=== PATIENT | male | born 1945 | race Two or more races ===

== ENCOUNTER → 2020-10-20 | Outpatient (CLI) | payer MEDICARE ==
--- NOTE | 2020-10-20 16:05 | XR ---
EXAMINATION TYPE: XR chest 2V DATE OF EXAM: 10/20/2020 COMPARISON: NONE HISTORY: Pre-MRI clearance. TECHNIQUE: Frontal and lateral views of the chest are obtained. FINDINGS: Overlying sternal wires and mediastinal clips are seen. Background chronic emphysematous a nd pulmonary fibrotic changes. There is slight infrahilar linear scarring extending anteriorly. There is no suspicious focal air space opacity, pleural effusion, or pneumothorax seen. The cardiac silho uette size is within normal limits with atherosclerotic and ectatic thoracic aorta. No epicardial pac er wires noted to prevent MRI. The osseous structures are demineralized. Cholecystectomy clips noted on lateral view. IMPRESSION: As above.
== END | disposition home or self-care (01) ==
LOC: RADXRMAIN 15:40
PROVIDERS: ATTEND Orthopaedic Surgery Sports Medicine
DX: Z18.10 Retained metal fragments, unspecified (principal)
CPT/HCPCS: 71046

== ENCOUNTER 2020-11-13 07:15 | Day surgery (SDC) | payer MEDICARE ==
[2020-11-11 09:29] VITALS: BMI 19.5
[~2020-11-13 07:15] MED LIST: DEXAMETHASONE SOD PHOSPHATE 4 MG/ML 1 ML VIAL IV ONE; LACTATED RINGERS 1,000 ML IV SCH; LIDOCAINE 1% (10MG/ML) FOR IV START INTRADERMA PRN; ONDANSETRON 4 MG/2 ML VIAL IVP ONE; Pre Op ABX Message 1 EACH MISC MISCELLANE ONE
[2020-11-13] MEDS ORDERED: MIDAZOLAM 2 MG/2 ML VIAL IV ONE (08:14)
[2020-11-13] MEDS ORDERED: SUCCINYLCHOLINE CHLORIDE 100 MG/5 ML SYR IV ONE (09:17)
[2020-11-13] MEDS ORDERED: LIDOCAINE 1% INJ 10MG/ML (20 ML MDV) ONE (09:17)
[2020-11-13] MEDS ORDERED: DEXAMETHASONE SOD PHOSPHATE 4 MG/ML 1 ML VIAL ONE (09:17)
[2020-11-13] MEDS ORDERED: ePHEDrine SULFATE/0.9% NACL/PF 50 MG/5 ML SYRINGE IV ONE (09:17)
[2020-11-13] MEDS ORDERED: ROPIVACAINE 5 MG/ML 30 ML VIAL ONE (09:17)
[2020-11-13] MEDS ORDERED: GLYCOPYRROLATE 0.2 MG/ML 2 ML VIAL ONE (09:17)
[2020-11-13] MEDS ORDERED: fentaNYL (PF) 50 MCG/ML 2 ML AMP ONE (09:17)
[2020-11-13] MEDS ORDERED: PHENYLEPHRINE 10 MG/ML VIAL ONE (09:17)
[2020-11-13] MEDS ORDERED: ETOMIDATE 2 MG/ML 10 ML VIAL ONE (09:17)
[2020-11-13] MEDS ORDERED: LACTATED RINGERS 1,000 ML IV ONE (10:30)
[2020-11-13 11:05] VITALS: TEMP 97.6
[2020-11-13] MEDS ORDERED: ONDANSETRON 4 MG/2 ML VIAL IVP ONE (11:21)
[2020-11-13] MEDS: HYDROmorphone 0.5 MG/0.5 ML SYRINGE IVP PRN ×2 (11:38→11:50)
[2020-11-13] MEDS ORDERED: HYDROcodone/APAP 7.5-325MG 1 EACH TAB ONE (12:18)
[2020-11-13] MEDS ORDERED: HYDROcodone/APAP 7.5-325MG 1 EACH TAB PO ONE (12:22)
[2020-11-13 13:30] VITALS: BP 137/81; PULSE 76; RESP 17
--- NOTE | 2020-11-13 17:28 | OP ---
OPERATIVE REPORT DATE OF PROCEDURE: 11/13/2020 SURGEON: Skyler Koenig MD MENTAL HEALTH TECHNICIAN: Saud Clinton PA-C PREOPERATIVE DIAGNOSES: 1. Left shoulder full-thickness rotator cuff tear. 2. Left shoulder superior labral tear. 3. 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 4. Left shoulder subacromial impingement. POSTOPERATIVE DIAGNOSES: 1. Left shoulder full-thickness tear of the supraspinatus, 2 x 2 cm tear. 2. Left shoulder type 2 superior labral tear, tearing both anterior and posterior to the biceps anchor. 3. Left shoulder chronic tear, proximal long head of the biceps tendon. 4. Left shoulder type 2 to 3 anterolateral acromial spur. PROCEDURE PERFORMED: 1. Left shoulder arthroscopic rotator cuff repair, 2 x 2 cm tear of the supraspinatus. 2. Left shoulder arthroscopic acromioplasty. 3. Left shoulder arthroscopic anterior, superior and posterior labral debridement. ANESTHESIA: General endotracheal. ESTIMATED BLOOD LOSS: Minimal. TOURNIQUET: None. DRAINS: None. COMPLICATIONS: None apparent. DISPOSITION: Post-Anesthesia Care Unit. EXAMINATION UNDER ANESTHESIA: Left shoulder elevation 160 degrees. External rotation to the side was to 60. External rotation at 90 degrees. Abduction was 90 degrees. Internal rotation at 90 degrees. Abduction was 60 degrees. Sulcus less than 1 cm, anterior translation glenoid face, posterior translation glenoid face. ARTHROSCOPIC FINDINGS - LEFT SHOULDER: 1. Superior labrum. He has a chronic complete tear of the proximal long head of the biceps tendon. 2. He had a degenerative superior labral tear which was torn both anterior and posterior to the previous biceps anchor. 3. Anterior and inferior labrum fraying but a normal glenoid labral attachment. 4. Posterior labrum: Tearing of the posterior labrum from the 9 o'clock position and 12 o'clock position on the glenoid face. 5. Humeral head cartilage normal. 6. Rotator cuff full-thickness tear of the supraspinatus 2 x 2 cm tear with minimal retraction. 7. Glenoid face cartilage, mild grade 1 fraying. 8. Subacromial space - significant fraying of the undersurface of the coracoacromial ligament with a type 2 to 3 anterolateral acromial spur. INDICATIONS: Al is a 75-year-old male with left shoulder pain. He sustained an injury to the shoulder. He has noted weakness as well as significant pain in the shoulder. He has been through a fairly significant course of nonoperative treatment up to this point. Physical examination and MRI reveal tearing of the rotator cuff as well as a chronic long head of the biceps tendon rupture. At this point in time he feels that he has failed nonoperative treatment and would like to proceed with operative intervention. A long discussion was held with the patient with regard to treatment options. The risks of the procedure were all discussed with him in detail. These risks include but were not limited to risk of infection, nerve damage, bleeding, pain, and a small risk of deep vein thrombosis which could lead to fatal pulmonary embolism. Further risks include lack of healing of the rotator cuff . The patient understands the operation as well as the fact that there is no guarantee of improvement of his symptoms. Appropriate informed consent was obtained. DESCRIPTION OF THE PROCEDURE: The patient was identified in the preoperative holding area. Surgical site was marked by both the patient and myself. He was given 2 grams of Ancef IV for prophylactic purposes. He was then transported to the operative suite. He was placed supine on the operating room table. The patient was then intubated endotracheally and received general anesthesia throughout the operative procedure. Examination under anesthesia was then performed with findings noted as above. The patient was then placed into the beach chair position, well padded in preparation for surgery. Great care was taken to ensure that the cervical spine was in neutral alignment and well padded, and maintained that way throughout the operative procedure. Great care was also taken to ensure that his legs were appropriately padded as well. The patient's left upper extremity was then prepped and draped in the usual sterile fashion. A standard surgical pause was undertaken to ensure that appropriate preoperative antibiotics had been given and that we were operating on the correct site. All staff in the room were in agreement and we proceeded. The acromion as well as the AC joint and coracoid were marked with a surgical pen. The skin of the anticipated port sites was also marked with a surgical pen. The skin of the anticipated port sites was then injected with 0.25% Marcaine with epinephrine. I then proceeded to make the posterior portal. A 30-degree arthroscope was introduced into the glenohumeral joint through this portal. The arthroscopic pump pressure was set at 40 mmHg and maintained at that level throughout the entire case. Next, utilizing an 18-gauge spinal needle to topically localize the placement, the anterior superior portal was made. This was made just underneath the biceps tendon high on the rotator interval tear. A small 5.75 mm cannula was then placed. The outflow was then done through this cannula. Diagnostic arthroscopy of the shoulder was then performed. The findings are noted above. Great care was taken to probe superior labral complex as well as biceps anchor. He had a chronic tear of the proximal long head of the biceps tendon. There was no evidence of the tendon within the glenohumeral joint. The tear of the superior labrum extended both anterior and posterior to the biceps anchor. At this point I proceeded to debride the torn loose tissue of the superior labrum. This was debrided anteriorly, superiorly and posteriorly back to stable tissue. I then inspected the rotator cuff from intra-articular. He did have a full-thickness tear of the supraspinatus. This tear was debrided very gently from intra-articular utilizing a synovial shaver. At this point in time no further work was deemed necessary from intra-articular. The arthroscope was removed from the glenohumeral joint, and utilizing the same posterior skin incision, it was placed in the subacromial space. Next, utilizing an 18-gauge spinal needle to topically localize placement, a lateral port was made under direct visualization. Subacromial resection was then performed utilizing the synovial shaver as well as the ArthroCare wand. There was a significant amount of fraying of the undersurface of the coracoacromial ligament. This was then taken down utilizing the ArthroCare wand. This exposed an underlying type 2-3 anterolateral acromial spur. I then proceeded with acromioplasty. Utilizing the synovial shaver in a juanis-type fashion, the acromioplasty was completed. When the acromioplasty was complete, the arthroscope was placed into a lateral portal. The shaver was placed posteriorly to ensure that it was adequate and coplanar with the posterior aspect of the acromion. I then proceeded with repair of the rotator cuff tear. A fourth portal was made off the anterolateral angle of the acromion. He had a full-thickness tear of the supraspinatus. This measured approximately 2 x 2 cm. The footprint of the greater tuberosity was then debrided of all devitalized tissue utilizing the synovial shaver as well as the ArthroCare wand. I then performed light decortication of the greater tuberosity utilizing the synovial shaver in a juanis-type fashion. This provided a nice bleeding surface with the repair. I then placed small microfracture holes along the articular margin to again enhance the healing of the repair. I then utilized a scorpion suture-passer to place an Arthrex FiberTape suture in inverted horizontal mattress fashion in the posterior half of the tear. These sutures were shuttled out through the posterior portal. I then again utilized the scorpion suture-passer and placed an Arthrex FiberTape suture in an inverted horizontal mattress fashion in the anterior half of the tear. These sutures were shuttled out through the anterior portal. I then proceeded to place the posterior anchor. The posterior sutures were shuttled out through the lateral portal. The awl was placed in the most posterolateral aspect of the footprint. He had very good bone quality. An Arthrex 4.75 mm Bio SwiveLock anchor was chosen. The FiberTape sutures were shuttled through the eye of the anchor, tensioned appropriately, and the anchor was placed with good purchase in bone. This brought the posterior half of the tear down very nicely and most of the posterolateral aspect of the footprint. The FiberTape sutures were cut flush with the anchor. The anterior sutures were then brought out through the anterolateral portal. The awl was placed in the most anterolateral aspect of the footprint. This was just posterior to the bicipital groove. Again he had very good bone quality. An Arthrex 4.75 mm Bio SwiveLock anchor was chosen. The anterior sutures were shuttled through the eyelet anchor, tensioned appropriately, and then the anchor was placed with excellent purchase in bone. This brought the anterior half of the tear down very nicely in the most anterolateral aspect of the footprint. The FiberTape sutures were cut flush with the anchor. At this point in time no further work was deemed necessary. The shoulder was thoroughly irrigated and then drained with an outflow cannula. The arthroscopic equipment was removed from the shoulder. The arthroscopic portals were then closed with 3-0 nylon interrupted suture. Sterile compressive dressings were applied. The patient's left upper extremity was placed into a standard sling. All sponge and needle counts were deemed correct prior to closure. The patient tolerated the procedure without apparent complication. He was transferred to the recovery room in stable condition. CLAIR / KRYS: [id number] /
--- NOTE | 2020-11-14 08:23 | P.ANPRN ---
Procedure Note - Anesthesia - Nerve Block Performed Left Interscalene Single Time Out Performed: Yes Date of Procedure: 11/13/20 Procedure Start Time: : Procedure Stop Time: Location of Patient: PreOp Indication: Acute Post-Operative Pain, Requested by Surgeon Sedation Type: Sedate with meaningful contact maintained Preparation: Sterile Prep Position: Supine Needle Types: Pajunk Needle Gauge: 21 Ultrasound used to visualize needle placement: Yes Ultrasound used to observe medication spread: Yes Blood Aspirated: No Pain Paresthesia on Injection Noted: No Resistance on Injection: Normal Image Stored and Saved: Yes Events: Uneventful and Well Tolerated (ropi .5% 20cc plus dexamethasone 4mg)
== END 2020-11-13 13:34 | disposition home or self-care (01) ==
LOC: OR 07:15
PROVIDERS: ATTEND Orthopaedic Surgery Sports Medicine
DX: M75.102 Unspecified rotator cuff tear or rupture of left shoulder, not specified as traumatic (principal); S43.432A Superior glenoid labrum lesion of left shoulder, initial encounter; X58.XXXA Exposure to other specified factors, initial encounter; M66.822 Spontaneous rupture of other tendons, left upper arm; M25.812 Other specified joint disorders, left shoulder; I11.0 Hypertensive heart disease with heart failure; I50.9 Heart failure, unspecified; H91.90 Unspecified hearing loss, unspecified ear; J98.4 Other disorders of lung; R63.4 Abnormal weight loss; H53.8 Other visual disturbances; Z97.3 Presence of spectacles and contact lenses; Z82.49 Family history of ischemic heart disease and other diseases of the circulatory system; Z87.891 Personal history of nicotine dependence; J44.9 Chronic obstructive pulmonary disease, unspecified; N40.0 Benign prostatic hyperplasia without lower urinary tract symptoms; K21.9 Gastro-esophageal reflux disease without esophagitis; Z95.1 Presence of aortocoronary bypass graft; Z90.49 Acquired absence of other specified parts of digestive tract; Z98.890 Other specified postprocedural states; Z90.89 Acquired absence of other organs; Z79.51 Long term (current) use of inhaled steroids; Z79.899 Other long term (current) drug therapy; Z88.8 Allergy status to other drugs, medicaments and biological substances; Z79.82 Long term (current) use of aspirin
CPT/HCPCS: 64415; 76942; 29826; 29827; C1713 ×2; J2250; J1100; J2370; J0690; J2405; J2001; J3010; J2795; J0330; J1170

== ENCOUNTER 2021-05-25 12:45 | Emergency (ER) | payer MEDICARE ==
[2021-05-25 12:55] VITALS: BP 177/98; PULSE 78; RESP 18; TEMP 97.7
--- NOTE | 2021-05-25 14:15 | ED ---
Upper Extremity HPI - General Chief Complaint: Extremity Injury, Upper Stated Complaint: L Arm Blood Clot, sent by Time Seen by Provider: 05/25/21 13:18 Source: patient Mode of arrival: wheelchair Limitations: no limitations - History of Present Illness Initial Comments: Patient is a 76-year-old male with history of COPD, heart failure, presenting to the emergency department from his doctor's office for a blood clot in his left arm. He states he is having a lot of left hand swelling and pain in his left arm, had an ultrasound last week and just found out the results today, his doctor called him in stated he had to go into the ER As he did have a blood clot. He does not know any details of the blood clot does not have report with him. He does admit to some mild left arm pain today. No fevers or chills, no chest pain or shortness of breath, no cough. He has no history of blood clots. He is not on a blood thinner. He has no further complaints. His vitals are stable upon arrival. - Related Data Home Medications Medication Instructions Recorded Confirmed Aspirin [Adult Low Dose Aspirin EC] 81 mg PO DAILY 11/11/20 05/25/21 Bisoprolol [Zebeta] 2.5 mg PO DAILY 11/11/20 05/25/21 Furosemide [Lasix] 20 mg PO Q48H 11/11/20 05/25/21 Losartan [Cozaar] 25 mg PO DAILY 11/11/20 05/25/21 Montelukast [Singulair] 10 mg PO DAILY 11/11/20 05/25/21 Multivitamins, Thera [Multivitamin 1 tab PO DAILY 11/11/20 05/25/21 (formulary)] Pantoprazole Sodium [Protonix] 40 mg PO DAILY 11/11/20 05/25/21 Albuterol Inhaler [Ventolin Hfa 2 puff INHALATION RT-Q4H PRN 11/13/20 05/25/21 Inhaler] Budesonide-Formot 160-4.5 Mcg 2 puff INHALATION RT-BID 11/13/20 05/25/21 [Symbicort 160-4.5 Mcg Inhaler] Evolocumab [Repatha Syringe] 140 mg SQ Q14D 05/25/21 05/25/21 Ezetimibe [Zetia] 10 mg PO DAILY 05/25/21 05/25/21 Furosemide [Lasix] 10 mg PO Q48H 05/25/21 05/25/21 Tiotropium [place] [Spiriva] 1 cap PO RT-DAILY 05/25/21 05/25/21 Previous Rx's Medication Instructions Recorded Apixaban [Eliquis] 0 mg PO DIRECTED #74 tablet 05/25/21 Allergies Allergy/AdvReac Type Severity Reaction Status Date / Time [id number]-Zjw Reductase Allergy muscle and Verified 05/25/21 14:41 Inhibitor joint pain Review of Systems ROS Statement: Those systems with pertinent positive or pertinent negative responses have been documented in the HPI. ROS Other: All systems not noted in ROS Statement are negative. Past Medical History Past Medical History: Heart Failure, COPD, GERD/Reflux, Prostate Disorder Additional Past Medical History / Comment(s): copd stage III, left arm blood clot, History of Any Multi-Drug Resistant Organisms: None Reported Past Surgical History: Back Surgery, Cholecystectomy, Coronary Bypass/CABG, Prostate Surgery, Tonsillectomy Additional Past Surgical History / Comment(s): CABG- 3 vessels. L4-5 with hardware,. left shoulder rotator cuff. Past Anesthesia/Blood Transfusion Reactions: No Reported Reaction Past Psychological History: No Psychological Hx Reported Smoking Status: Former smoker Past Alcohol Use History: None Reported Past Drug Use History: None Reported - Past Family History Mother Family Medical History: No Reported History General Exam - General Exam Comments Initial Comments: GENERAL: Patient is well-developed and well-nourished. Patient is nontoxic and in no acute distress. HEAD: Atraumatic, normocephalic. EYES: Pupils equal round and reactive to light, extraocular movements intact, sclera anicteric, conjunctiva are normal. Eyelids were unremarkable. NECK: Normal range of motion, supple without lymphadenopathy or JVD. LUNGS: Unlabored respirations. Breath sounds clear to auscultation bilaterally and equal. No wheezes rales or rhonchi. HEART: Regular rate and rhythm without murmurs, rubs or gallops. MUSCULOSKELETAL: Patient has full range of motion of his left arm, no swelling present, does have some mild pain of his left hand and left antecubital space. No swelling, no redness. Neurovascular intact. No clubbing or cyanosis. NEUROLOGICAL: Patient is alert and oriented x 3. Normal speech, normal gait. PSYCH: Normal mood, normal affect. SKIN: Warm, Dry, normal turgor, no rashes or lesions noted. Limitations: no limitations Course Vital Signs 05/25/21 12:51 Temperature 97.7 F Pulse Rate 78 Respiratory 18 Rate Blood Pressure 177/98 O2 Sat by Pulse 97 Oximetry Medical Decision Making - Medical Decision Making Patient is a 76-year-old male with history of COPD, presenting from his doctor's office for a blood clot in his left arm. He had outpatient ultrasound done last week, he states the report showed an acute DVT of his left upper arm and they recommended coming to the ER for further management. Outpatient ultrasound shows an acute DVT at the level of the proximal and mid brachial vein of left upper arm, distal and proximal to this vessels compress. He denies history of anemia, no GI bleeds. No history of aneurysm. Patient will be started on eliquis for acute DVT. I will give him vascular follow-up. Patient's given first dose here in the ER. He is agreeable with this plan of care. He will follow up with vascular doctor. Return parameters were discussed with him and he verbalized understanding. Case discussed with Dr. Noyola. Disposition Clinical Impression: Acute deep vein thrombosis (DVT) of left upper extremity Disposition: HOME SELF-CARE Condition: Stable Instructions (If sedation given, give patient instructions): Deep Vein Thrombosis (ED) Additional Instructions: Please return to the Emergency Department if symptoms worsen or any other con cerns. Please take blood thinner as prescribed. Please follow up with vascular doctor as discussed. Prescriptions: Apixaban [Eliquis] 0 mg PO DIRECTED #74 tablet Is patient prescribed a controlled substance at d/c from ED?: No Referrals: Eric Valle DO [Primary Care Provider] - 1-2 days Oscar Quigley DO [Doctor of Osteopathic Medicine] - 1-2 days Time of Disposition: 14:36
[2021-05-25] MEDS ORDERED: APIXABAN 5 MG TAB PO STA (14:32)
== END 2021-05-25 15:03 | disposition home or self-care (01) ==
LOC: SUPCPDRO 12:45 → EC 12:45
DX: I82.622 Acute embolism and thrombosis of deep veins of left upper extremity (principal); J44.9 Chronic obstructive pulmonary disease, unspecified; I50.9 Heart failure, unspecified; Z88.8 Allergy status to other drugs, medicaments and biological substances; Z79.899 Other long term (current) drug therapy; Z87.891 Personal history of nicotine dependence
CPT/HCPCS: 99283